=== PATIENT | female | born 1980 | race African-American/Black ===

== ENCOUNTER 2017-02-05 21:38 | Emergency (ER) | payer BC ==
[~2017-02-05] VITALS: Ht 172.7 cm; Wt 83.0 kg
[~2017-02-05 21:38] MED LIST: ALBU1AER INH; ZITH250T PO
[2017-02-05 21:42] VITALS: BP 128/87; PULSE 64; RESP 20; TEMP 98.2; O2SAT 99
[2017-02-05] MEDS ORDERED: ONDANSETRON HCL 4 MG/2 ML VIAL IVP ONE (22:15)
[2017-02-05] MEDS ORDERED: SODIUM CHLORIDE 0.9% FLUSH 10 ML FLUSH IVF PRN (22:15)
[2017-02-05] MEDS ORDERED: SODIUM CHLOR 0.9% 1000 ML INJ 1,000 ML IV ONE (22:15)
[2017-02-05] MEDS ORDERED: MORPHINE SULFATE 4 MG/ML INJ IV PUSH ONE (22:15)
[2017-02-05 22:18] LABS: BLOOD, URINE NEG (NEG); GLUCOSE,URINE NEG (NEG); KETONE, URINE NEG (NEG); NITRITE,URINE NEG (NEG)
[2017-02-05 22:22] LABS: URINE COLOR YELLOW (YELLW/STRAW)
[2017-02-05 22:23] LABS: COMMENT (UR) CULT NOT INDICATED; CULTURE IF INDICATED CULT NOT INDICATED; SQUAMOUS EPITHELIAL CELL URINE 0-5 /hpf (0-5); WBC, URINE 0-2 /hpf (0-5)
--- NOTE | 2017-02-05 22:30 | PD ---
HPI Chief Complaint: Abdominal Pain Time Seen by Provider: 21:56 Travel History International Travel<30 days: No Contact w/Intl Traveler<30days: No Traveled to known affect area: No History of Present Illness HPI Patient is a 36 her old female who presents to emergency room with complaints of lower abdominal pelvic pain. Patient reports that she sees Dr Femi Nash as her fitness manager. Patient reports that she began having lower abdominal pain to her groin in October, she was seen by Dr. Nash and was told that she had multiple fibroids. Patient reports that the pain feels like a sharp stabbing pain to her uterus. Patient reports that she has some fibroids as large as the size of her uterus. Patient opted for noninvasive treatment hoping that her fibroids would shrink. Reports that she realized that her fibroids were not getting any smaller as she has been having more pain and cramping to her lower abdomen. She is currently scheduled to have some of her fibroids removed in 2 weeks. Patient reports that her groin pain has been ongoing for the past few weeks, reports that her pain has worsened to the point where she has pain radiating down her legs. Patient did call her fitness manager and was told to come to the ER and get an ultrasound to assess the size of her fibroids. Patient reports that she is currently on her menstrual cycle - reports no vaginal discharge at this time. Denies fever/chills. Denies n/v. PFSH Past Medical History Diminished Hearing: No Reproductive: Yes (UTERINE FIBROIDS) Tetanus Vaccination: < 5 Years Influenza Vaccination: No ?: Not LMP: 02/03/17 : 2 Para: 1 Miscarriage: 1 Past Surgical History Section: Yes Gynecologic Surgery: Yes () Social History Alcohol Use: Yes (socially) Tobacco Use: No Substance Use: No (denies) Allergies-Medications (Allergen,Severity, Reaction): Coded Allergies: No Known Allergies (Verified , 09/28/15) Reported Meds & Prescriptions Reported Meds & Active Scripts Active No Active Prescriptions or Reported Medications Review of Systems General / Constitutional: No: Fever Eyes: No: Visual changes HENT: No: Headaches Cardiovascular: No: Chest Pain or Discomfort Respiratory: No: Shortness of Breath Gastrointestinal: Positive: Abdominal Pain Genitourinary: Positive: Pelvic Pain, Vaginal Bleeding, No: Dysuria Musculoskeletal: No: Pain Skin: No Rash Neurologic: No: Weakness Psychiatric: No: Depression Endocrine: No: Polydipsia Hematologic/Lymphatic: No: Easy Bruising Physical Exam Narrative GENERAL: mild distress SKIN: Focused skin assessment warm/dry. HEAD: Atraumatic. Normocephalic. EYES: Pupils equal and round. No scleral icterus. No injection or drainage. ENT: No nasal bleeding or discharge. Mucous membranes pink and moist. NECK: Trachea midline. No JVD. CARDIOVASCULAR: Regular rate and rhythm. No murmur appreciated. RESPIRATORY: No accessory muscle use. Clear to auscultation. Breath sounds equal bilaterally. GASTROINTESTINAL: Abdomen soft, non-tender, nondistended. Hepatic and splenic margins not palpable. : pelvic exam performed with RN at bedside, cervical os closed, no cmt or adnexal tenderness MUSCULOSKELETAL: No obvious deformities. No clubbing. No cyanosis. No edema. NEUROLOGICAL: Awake and alert. No obvious cranial nerve deficits. Motor grossly within normal limits. Normal speech. PSYCHIATRIC: Appropriate mood and affect; insight and judgment normal. Data Data Last Documented VS Vital Signs Date Time Temp Pulse Resp B/P Pulse Ox O2 Delivery O2 Flow Rate FiO2 02/05/17 21:42 98.2 64 20 128/87 99 Orders Urinalysis - C+S If Indicated (02/05/17 21:43) Ed Urine Pregnancytest Poc (02/05/17 21:43) Complete Blood Count With Diff (02/05/17 22:07) Comprehensive Metabolic Panel (02/05/17 22:07) Gc And Chlamydia Pcr (02/05/17 22:07) Wet Prep Profile (02/05/17 22:07) Iv Access Insert/Monitor (02/05/17 22:07) Sodium Chloride 0.9% Flush (Ns Flush) (02/05/17 22:15) Us Pelvis Comp W Doppler (02/05/17 22:07) Ondansetron Inj (Zofran Inj) (02/05/17 22:15) Sodium Chlor 0.9% 1000 Ml Inj (Ns 1000 M (02/05/17 22:15) Morphine Inj (Morphine Inj) (02/05/17 22:45) Labs Laboratory Tests Test 02/05/17 02/05/17 22:10 22:45 Urine Color YELLOW Urine Turbidity CLEAR Urine pH 6.0 Urine Specific [place] 1.017 Urine Protein NEG mg/dL Urine Glucose (UA) NEG mg/dL Urine Ketones NEG mg/dL Urine Occult Blood NEG Urine Nitrite NEG Urine Bilirubin NEG Urine Leukocyte Esterase NEG Urine WBC 0-2 /hpf Urine Squamous Epithelial 0-5 /hpf Cells Microscopic Urinalysis Comment CULT NOT INDICATED White Blood Count 6.8 TH/MM3 Red Blood Count 4.16 MIL/MM3 Hemoglobin 12.1 GM/DL Hematocrit 36.3 % Mean Corpuscular Volume 87.2 FL Mean Corpuscular Hemoglobin 29.1 PG Mean Corpuscular Hemoglobin 33.4 % Concent Red Cell Distribution Width 12.0 % Platelet Count 185 TH/MM3 Mean Platelet Volume 9.1 FL Neutrophils (%) (Auto) 72.4 % Lymphocytes (%) (Auto) 20.1 % Monocytes (%) (Auto) 5.6 % Eosinophils (%) (Auto) 1.2 % Basophils (%) (Auto) 0.7 % Neutrophils # (Auto) 4.9 TH/MM3 Lymphocytes # (Auto) 1.4 TH/MM3 Monocytes # (Auto) 0.4 TH/MM3 Eosinophils # (Auto) 0.1 TH/MM3 Basophils # (Auto) 0.0 TH/MM3 CBC Comment DIFF FINAL Differential Comment Sodium Level 141 MEQ/L Potassium Level 3.6 MEQ/L Chloride Level 108 MEQ/L Carbon Dioxide Level 27.3 MEQ/L Anion Gap 6 MEQ/L Blood Urea Nitrogen 12 MG/DL Creatinine 0.84 MG/DL Estimat Glomerular Filtration 93 ML/MIN Rate Random Glucose 87 MG/DL Calcium Level 8.5 MG/DL Total Bilirubin 0.4 MG/DL Aspartate Amino Transf 18 U/L (AST/SGOT) Alanine Aminotransferase 33 U/L (ALT/SGPT) Alkaline Phosphatase 42 U/L Total Protein 7.0 GM/DL Albumin 3.9 GM/DL [facility] Medical Decision Making Medical Screen Exam Complete: Yes Emergency Medical Condition: Yes Interpretation(s) Vital Signs Date Time Temp Pulse Resp B/P Pulse Ox O2 Delivery O2 Flow Rate FiO2 02/05/17 21:42 98.2 64 20 128/87 99 Differential Diagnosis Differential includes uterine fibroid, ovarian torsion, cervicitis, uti, Narrative Course Patient is a 36 year old female who presents to emergency room for evaluation of lower abdominal pain. She does have history of uterine fibroids, patient concerned that her pain is from enlarged fibroids. Pelvic US ordered Vital Signs Date Time Temp Pulse Resp B/P Pulse Ox O2 Delivery O2 Flow Rate FiO2 02/05/17 21:42 98.2 64 20 128/87 99 CBC & BMP Diagram 02/05/17 22:45 labs reviewed. UA: no signs of infection. pelvic us shows good flow to both ovaries, pelvic exam benign I reviewed all labs and all studies with patient in detail. Patient has had this pelvic pain which has been ongoing but worsening since october. Reports that symptoms do feel similar to her "fibroid pain." Discussed need for her to follow up with her fitness manager. She will bring her studies as well as lab work with her to her appointment. She will return to ER as needed. Diagnosis Primary Impression: pelvic pain Referrals: Elvira Quintero MD Patient Instructions: General Instructions, Narcotic given in the ED Additional Instructions: Please follow up with your fitness manager as soon as possible Return to ER as needed Please bring a copy of your lab work and studies to your doctor's office for follow up Return to ER if symptoms worsen or progress Med/Other Pt SpecificInfo: Prescription(s) given Scripts Oxycodone-Acetaminophen (Percocet)5-325 mg Tab1 Tab PO Q6H PRN (PAIN) #10 TAB Ref 0 Prov:Renetta Chang DO 02/05/17 Ibuprofen 600 Mg [id number] Mg PO Q6H PRN (Pain/Inflammation) #40 TAB Ref 0 Prov:Renetta Chang DO 02/05/17 Renetta Chang DO Feb 05, 2017 22:30
[2017-02-05] MEDS ORDERED: MORPHINE SULFATE 8 MG/ML INJ IV PUSH ONE (22:45)
[2017-02-05 22:51] LABS: AUTOMATED NEUTROPHIL # 4.9 TH/MM3 (1.8-7.7); BASOPHIL % 0.7 % (0.0-2.0); EOSINOPHIL # 0.1 TH/MM3 (0-0.4); EOSINOPHIL % 1.2 % (0.0-4.0); HEMATOCRIT 36.3 % (35.0-46.0); HEMO FLAGS DIFF FINAL; LYMPH % 20.1 % (9.0-44.0); LYMPHOCYTE # 1.4 TH/MM3 (1.0-4.8); MEAN CELL VOLUME 87.2 FL (80.0-100.0); MEAN CORPUSCULAR HEMOGLOBIN 29.1 PG (27.0-34.0); MEAN CORPUSCULAR HGB CONC 33.4 % (32.0-36.0); MONO % 5.6 % (0.0-8.0); NEUT % 72.4 % (16.0-70.0); PLATELET COUNT 185 TH/MM3 (150-450); RED BLOOD COUNT 4.16 MIL/MM3 (4.00-5.30); WHITE BLOOD COUNT 6.8 TH/MM3 (4.0-11.0)
[2017-02-05 22:55] LABS: CHLORIDE 108 MEQ/L (98-107); POTASSIUM 3.6 MEQ/L (3.5-5.1); SODIUM (NA) 141 MEQ/L (136-145)
[2017-02-05 22:58] LABS: ANION GAP 6 MEQ/L (5-15); BICARBONATE 27.3 MEQ/L (21.0-32.0)
[2017-02-05 22:59] LABS: BLOOD UREA NITROGEN 12 MG/DL (7-18)
[2017-02-05 23:01] LABS: ALT (GPT) 33 U/L (10-53)
[2017-02-05 23:02] LABS: AST (GOT) 18 U/L (15-37); GLOMERULAR FILTRATION RATE 93 ML/MIN (>89)
[2017-02-05 23:03] LABS: TOTAL BILIRUBIN ADULT 0.4 MG/DL (0.2-1.0)
[2017-02-05 23:04] LABS: ALKALINE PHOSPHATASE 42 U/L (45-117)
[2017-02-05] MEDS ORDERED: IBUP-232 PO (23:28)
[2017-02-05] MEDS ORDERED: PERC5TAB12 PO (23:28)
--- NOTE | 2017-02-06 00:04 | RADRPT ---
EXAM DATE/TIME: 02/05/2017 22:45 [place] COMPARISON: No previous studies available for comparison. EXTERNAL COMPARISON : [facility], US TRANSVAGINAL, October 21, 2016 INDICATIONS : Pelvic pain. MEDICAL HISTORY : . Uterine fibroids. SURGICAL HISTORY : section. ENCOUNTER: Subsequent ACUITY: 4-6 months PAIN SCORE: 5/10 LOCATION: Bilateral pelvis MEASUREMENTS: UTERUS: 8.5 x 6.0 x 4.6 cm ENDOMETRIAL STRIPE: 8 mm RIGHT OVARY: 4.0 x 1.3 x 1.5 cm LEFT OVARY: 3.8 x 3.6 x 1.6 cm FINDINGS: UTERUS: Myometrium has a heterogeneous appearance with a 2.0 x 2.1 x 1.1 cm hypoechoic complex area of the lo wer uterine segment. There is also a 5.6 x 4.8 x 3.7 cm complex region with shadowing pedunculated of f the uterine fundus likely representing a partially calcified fibroid. RIGHT OVARY: Ovary contains no mass or significant cystic lesion. LEFT OVARY: Ovary contains no mass or significant cystic lesion. MISCELLANEOUS: No free fluid. CONCLUSION: 1. Heterogeneous appearance of the uterus with probable fibroids. Largest lesion is pedunculated off the uterine fundus measuring 5.6 cm in diameter and may be partially calcified. 2. Otherwise negative. Ovaries are normal in size with small follicular cysts. No free fluid. Kristian Chavez MD on February 05, 2017 at 23:59 Board Certified Radiologist. This report was verified electronically.
--- NOTE | 2017-02-06 00:18 | PD ---
Data Data Last Documented VS Vital Signs Date Time Temp Pulse Resp B/P Pulse Ox O2 Delivery O2 Flow Rate FiO2 02/06/17 00:42 77 20 122/76 99 02/05/17 21:42 98.2 Orders Urinalysis - C+S If Indicated (02/05/17 21:43) Ed Urine Pregnancytest Poc (02/05/17 21:43) Complete Blood Count With Diff (02/05/17 22:07) Comprehensive Metabolic Panel (02/05/17 22:07) Gc And Chlamydia Pcr (02/05/17 22:07) Wet Prep Profile (02/05/17 22:07) Iv Access Insert/Monitor (02/05/17 22:07) Sodium Chloride 0.9% Flush (Ns Flush) (02/05/17 22:15) Us Pelvis Comp W Doppler (02/05/17 22:07) Ondansetron Inj (Zofran Inj) (02/05/17 22:15) Sodium Chlor 0.9% 1000 Ml Inj (Ns 1000 M (02/05/17 22:15) Morphine Inj (Morphine Inj) (02/05/17 22:45) Oxycodone-Acetamin 5-325 Mg (Percocet (02/06/17 00:30) Labs Laboratory Tests Test 02/05/17 02/05/17 02/05/17 22:10 22:45 23:20 Urine Color YELLOW Urine Turbidity CLEAR Urine pH 6.0 Urine Specific [place] 1.017 Urine Protein NEG mg/dL Urine Glucose (UA) NEG mg/dL Urine Ketones NEG mg/dL Urine Occult Blood NEG Urine Nitrite NEG Urine Bilirubin NEG Urine Leukocyte Esterase NEG Urine WBC 0-2 /hpf Urine Squamous Epithelial 0-5 /hpf Cells Microscopic Urinalysis Comment CULT NOT INDICATED White Blood Count 6.8 TH/MM3 Red Blood Count 4.16 MIL/MM3 Hemoglobin 12.1 GM/DL Hematocrit 36.3 % Mean Corpuscular Volume 87.2 FL Mean Corpuscular Hemoglobin 29.1 PG Mean Corpuscular Hemoglobin 33.4 % Concent Red Cell Distribution Width 12.0 % Platelet Count 185 TH/MM3 Mean Platelet Volume 9.1 FL Neutrophils (%) (Auto) 72.4 % Lymphocytes (%) (Auto) 20.1 % Monocytes (%) (Auto) 5.6 % Eosinophils (%) (Auto) 1.2 % Basophils (%) (Auto) 0.7 % Neutrophils # (Auto) 4.9 TH/MM3 Lymphocytes # (Auto) 1.4 TH/MM3 Monocytes # (Auto) 0.4 TH/MM3 Eosinophils # (Auto) 0.1 TH/MM3 Basophils # (Auto) 0.0 TH/MM3 CBC Comment DIFF FINAL Differential Comment Sodium Level 141 MEQ/L Potassium Level 3.6 MEQ/L Chloride Level 108 MEQ/L Carbon Dioxide Level 27.3 MEQ/L Anion Gap 6 MEQ/L Blood Urea Nitrogen 12 MG/DL Creatinine 0.84 MG/DL Estimat Glomerular Filtration 93 ML/MIN Rate Random Glucose 87 MG/DL Calcium Level 8.5 MG/DL Total Bilirubin 0.4 MG/DL Aspartate Amino Transf 18 U/L (AST/SGOT) Alanine Aminotransferase 33 U/L (ALT/SGPT) Alkaline Phosphatase 42 U/L Total Protein 7.0 GM/DL Albumin 3.9 GM/DL Clue Cells (Wet Prep) NONE SEEN Vaginal Trichomonas (Wet Prep) NONE SEEN Vaginal Yeast (Wet Prep) NONE SEEN MDM Supervised Visit with DAYNE: No Narrative Course Patient care assumed from Dr. Renetta Chang at midnight. Patient is a 36-year- old female presents emergency Department with lower pelvic pain. Initial workup according to Dr. Chang blood work pelvic exam all benign. She has a history of fibroids and is currently being followed by Dr. Nash for fibroidectomy. Patient states she's been having intermittent pain since October. Patient was given pain medicine was beginning to feel better. Pelvic ultrasound did show a 5 cm fibroid, no other significant findings were seen. Patient's abdominal exam by me was benign, no rebound no percussive tenderness and no tenderness at all. Very soft abdomen. This point I think the patient is stable for discharge, Dr. Chang's written pain medicine and she will follow- up with Dr. Nash. Discussed return to ED criteria symptomatic management home. Diagnosis Primary Impression: pelvic pain Referrals: Elvira Quintero MD Patient Instructions: General Instructions, Narcotic given in the ED, Pelvic Pain (ED) Departure Forms: Work Release, Enter return to work date: Feb 08, 2017 Tests/Procedures Additional Instruction: Please follow up with your test design engineer as soon as possible Return to ER as needed Please bring a copy of your lab work and studies to your doctor's office for follow up Return to ER if symptoms worsen or progress Scripts Oxycodone-Acetaminophen (Percocet)5-325 mg Tab1 Tab PO Q6H PRN (PAIN) #10 TAB Ref 0 Prov:Renetta Chang DO 02/05/17 Ibuprofen 600 Mg [id number] Mg PO Q6H PRN (Pain/Inflammation) #40 TAB Ref 0 Prov:Renetta Chang DO 02/05/17 Disposition: 01 DISCHARGE HOME Condition: Stable Cody Harris MD Feb 06, 2017 00:18
[2017-02-06] MEDS ORDERED: oxyCODONE/ACETAMINOPHEN 5 MG/325 MG TAB PO ONE (00:30)
[2017-02-06 00:42] VITALS: BP 122/76
[2017-02-06 12:37] LABS: CHLAMYDIA PCR NOT DETECTED (NOT DETECT); NEISSERIA PCR NOT DETECTED (NOT DETECT)
[2017-02-16] MEDS ORDERED: HYDR-3516 PO (14:10)
[2017-02-16] MEDS ORDERED: IBUP800T23 PO (14:10)
[2017-02-16] MEDS ORDERED: ACET500T13 PO (14:10)
[2017-02-17] MEDS ORDERED: NORC5TAB PO (12:52)
== END 2017-02-06 01:28 | disposition home or self-care (01) ==
LOC: PHED 21:38
DX: R10.2 Pelvic and perineal pain (principal)
CPT/HCPCS: 76856; 80053; 81001; 84703; 85025; 87210; 87491; 87591; 93975; 96361; 96374; 96375; 99285; J2270; J2405; J7030

== ENCOUNTER → 2017-02-17 | Day surgery (SDC) | payer BC ==
[~2017-02-17] VITALS: Ht 172.7 cm; Wt 82.9 kg
[~2017-02-17] MED LIST changes: +*MEPERIDINE 25 MG INJ VIAL PERIprocedural Use ONLY ONE; +*ONDANSETRON 4 MG VIAL PERIprocedural Use ONLY ONE; +*morphine SULFATE 8 MG/ML PERIprocedure ONLY ONE; +ACET500T13 PO; +ACETAMINOPHEN/HYDROcodone 325 MG/5 MG TAB PO PRN; -ALBU1AER INH; +BUPIVACAINE/EPINEPHRINE 0.5% PF 10 ML VIAL INFIL ONE; +CHLORHEXIDINE GLUCONATE 2 % 1 PACK (2 CLOTHS) TOPICAL PRN; +DEXAMETHASONE SOD PHOS 4 MG/ML VIAL ONE; +DO NOT ADM ANY ANTICOAGULANT DRUGS PRN; +FAMOTIDINE 20 MG/2 ML VIAL ONE; +HYDR-3516 PO; +IBUP800T23 PO; +INSULIN HUMAN REGULAR 1,000 UNITS/10 ML VIAL SQ PRN; +KETOROLAC TROMETHAMINE 60 MG/2 ML (IM) VIAL IM ONE; +LACTATED RINGER'S 1000 ML INJ 1,000 ML IV ONE; +LACTATED RINGER'S 1000 ML IV PRN; +METOPROLOL TARTRATE 25 MG TAB PO PRN; +MIDAZOLAM HCL 2 MG/2 ML VIAL ONE; +NORC5TAB PO; +ONDANSETRON HCL 4 MG/2 ML VIAL IV PUSH ONE; +POVIDONE IODINE 5% (ANTISEPSIS KIT) 4 APPLICATIONS EACH NARE PRN; +PROPOFOL 200 MG/20 ML AMP IV ONE; +SODIUM CHLORID 0.9% 500 ML IV PRN; +SUGAMMADEX SODIUM 200 MG/2 ML VIAL IV PUSH ONE; -ZITH250T PO; +fentaNYL CITRATE 250 MCG/5 ML AMP ONE
[2017-02-17 10:17] VITALS: BP 130/73; PULSE 61; RESP 16; TEMP 98.2; O2SAT 100
[2017-02-17 10:54] LABS: AUTOMATED NEUTROPHIL # 3.5 TH/MM3 (1.8-7.7); BASOPHIL % 0.5 % (0.0-2.0); EOSINOPHIL # 0.1 TH/MM3 (0-0.4); EOSINOPHIL % 1.8 % (0.0-4.0); HEMATOCRIT 36.8 % (35.0-46.0); HEMO FLAGS DIFF FINAL; LYMPH % 18.6 % (9.0-44.0); LYMPHOCYTE # 0.9 TH/MM3 (1.0-4.8); MEAN CELL VOLUME 87.7 FL (80.0-100.0); MEAN CORPUSCULAR HEMOGLOBIN 29.9 PG (27.0-34.0); MEAN CORPUSCULAR HGB CONC 34.1 % (32.0-36.0); MONO % 8.6 % (0.0-8.0); NEUT % 70.5 % (16.0-70.0); PLATELET COUNT 180 TH/MM3 (150-450); RED BLOOD COUNT 4.19 MIL/MM3 (4.00-5.30); RED CELL DISTRIBUTION WIDTH 12.7 % (11.6-17.2)
[2017-02-17 11:11] LABS: BETA HCG QUANT LESS THAN 1 MIU/ML (0-5)
--- NOTE | 2017-02-17 12:50 | PD.OP ---
Operative Report Date of Surgery: Feb 17, 2017 Preoperative Diagnosis: (1) Uterine fibroid Postoperative Diagnosis: (1) Fibroma of left ovary Procedure: operative laparoscopy with removal of left ovarian fibroma Anesthesia: general Surgeon: Femi Quintero Natural [employer] Engineer(s): no Operation and Findings: large ovarian fibroma Femi Quintero MD Feb 17, 2017 12:50
--- NOTE | 2017-02-17 12:53 | HHI.DCPOC ---
Discharge Care Plan Diagnosis: (1) Fibroma of left ovary Report Symptoms to Your Doctor -Temperature above 100.5 degrees -Redness, of incision or excessive or foul smelling drainage -Unusual pain or calf pain -Increased vaginal bleeding -Painful or difficulty urinating -Feelings of extreme sadness or anxiety after 2 weeks Goals to Promote Your Health * To prevent worsening of your condition and complications * To maintain your health at the optimal level Directions to Meet Your Goals Take your medications as prescribed Follow your dietary instruction Follow activity as directed Ensure plenty of rest for recovery Drink fluids for hydration Keep your appointments as scheduled Take your immunizations and boosters as scheduled If your symptoms worsen call your PCP, if no PCP go to Urgent Care Center or Emergency Room Smoking is Dangerous to Your Health. Avoid second hand smoke Call the 24-hour crisis hotline for domestic abuse at Femi Quintero MD Feb 17, 2017 12:53
[2017-02-17 14:45] VITALS: BP 149/80; PULSE 72; RESP 16; TEMP 97.4; O2SAT 100
--- NOTE | 2017-02-17 20:43 | MP ---
cc: ESHA QUINTERO DATE OF SURGERY 02/17/2017 PROCEDURE Operative laparoscopy with a removal of left ovarian fibroma. PREOPERATIVE DIAGNOSIS Uterine fibroids. POSTOPERATIVE DIAGNOSIS Left ovarian fibroma. SURGEON Dr. Esha Quintero. ANESTHESIA General with Dr. Omayra Almodovar. COMPLICATIONS None. FINDINGS 5 cm left ovarian fibroma, otherwise normal pelvic anatomy, normal fallopian tubes bilaterally. Small paratubal cysts. PROCEDURE IN DETAIL After informed consent, the patient was taken to the operating room where she was placed under general anesthesia, placed spine position, legs in a [place] stirrups. Peritoneum and vagina prepped and draped in normal sterile fashion. After adequate anesthesia was assured and time-out was taken a speculum was placed in the vagina. Cervix grasped with a single-tooth tenaculum. An [place] uterine manipulator was placed. Bladder was drained with a Tenorio catheter which was left indwelling during the case. We then changed our gloves and a 5 mm infraumbilical incision was then made after injection with 0.25% Marcaine with epinephrine. We entered the abdomen under direct visualization. A left lower quadrant trocar was placed 5 mL size and a 10-mm suprapubic was placed through an old scar. Upper abdomen was normal. Fallopian tubes and ovaries were normal bilaterally except for this large 5 cm ovarian fibroma. There was no fibroid in the uterus except for one small 1 cm fibroid on the posterior aspect. There was no endometriosis or other abnormalities and fallopian tubes appeared normal. At this point the Harmonic scalpel was used to remove the fibroma from the ovary. There was normal ovary on the other side. The was left in place. The entire fibroma was removed without difficulty, placed in the bag and pulled through the 12 mm site. The incision was extended at 20 mm but the fibroma still had to be broken up to come through that incision. This was done within the bag and there was no spill into the abdomen. The patient tolerated this well. All instruments removed from the abdomen. The fascia was closed with 2-0 Vicryl. The skin was closed subcuticular stitch. All CO2 was drained from the abdomen to the best of our ability. The patient tolerated the procedure well. She was taken to recovery room in stable condition after being awakened. All instruments removed the abdomen and the vagina. MD LANDRY Moore /1:00 PM /8:38 PM
== END | disposition home or self-care (01) ==
LOC: HSDC 09:16
PROVIDERS: ATTEND Obstetrics & Gynecology
DX: D27.1 Benign neoplasm of left ovary (principal); D25.2 Subserosal leiomyoma of uterus
CPT/HCPCS: 00840; 58662; 84702; 85025; 88307; J1100; J1885; J2175; J2250; J2270; J2405; J3010; J7120; 88305